=== PATIENT | male | born 1980 | race Caucasian/White ===

== ENCOUNTER → 2016-12-13 | Outpatient (CLI) | payer BC ==
--- NOTE | 2016-12-13 14:21 | REP ---
Clinical: Trauma. Technique: AP and lateral views of the right tibia / fibula. Findings: Anterior view demonstrates a 3 mm cortical defect along the anterior mid tibia which may reflect small fracture and should be correlated with mechanism of injury and point of maximal tenderness. Impression: Small likely traumatic cortical defect along the mid anterior tibia. Signed by Delmar Cartagena MD 12/13/2016 02:12 P
== END ==
LOC: M ADAMS 13:46
PROVIDERS: ATTEND Physician Assistant Medical
DX: R52 Pain, unspecified (principal)

== ENCOUNTER 2017-07-27 10:10 | Day surgery (SDC) | payer OTHER, BC ==
[~2017-07-27] VITALS: Ht 185.4 cm; Wt 112.9 kg
[~2017-07-27 10:10] MED LIST: FLUO20CA8 PO; VITA2000 PO
[2017-07-27] MEDS: NS 1,000 ML IV ONE (10:15)
[2017-07-27] MEDS ORDERED: PROPOFOL 200 MG/20 ML VIAL As Ordered ONE (10:31)
[2017-07-27] MEDS ORDERED: LIDOCAINE 2% INJ 100 MG/5 ML SDV (FOR ANES.) As Ordered ONE (10:31)
[2017-07-27] MEDS ORDERED: fentaNYL 100 MCG/2 ML INJECTION (J3010) As Ordered ONE (11:18)
--- NOTE | 2017-07-27 11:35 | ROOR ---
Patient Name: Ciro Alvarez Procedure Date: 07/27/2017 11:14 AM Date of : 1980 Age: 37 Room: [facility] Gender: Male Note Status: Finalized Procedure: Upper GI endoscopy + Small bowel bx. Indications: Diarrhea, Endoscopy to assess diarrhea in patient suspected of having celiac disease Providers: Alberto Lock MD Referring MD: Charlie Alford Requesting Provider: Medicines: Monitored Anesthesia Care Complications: No immediate complications. Procedure: Pre-Anesthesia Assessment: - The heart rate, respiratory rate, oxygen saturations, blood pressure, adequacy of pulmonary ventilation, and response to care were monitored throughout the procedure. The Endoscope was introduced through the mouth, and advanced to the second part of duodenum. The upper GI endoscopy was accomplished without difficulty. The patient tolerated the procedure well. Findings: The Z-line was irregular and was found 40 cm from the incisors. Multiple biopsies were obtained with cold forceps for evaluation to rule out Srinivasan's Esophagus randomly at the gastroesophageal junction. Non-severe esophagitis with no bleeding was found 40 cm from the incisors. A medium-sized hiatal hernia was present. No other significant abnormalities were identified in a careful examination of the stomach. The exam of the duodenum was otherwise normal. Biopsies for histology were taken with a cold forceps in the first portion of the duodenum for evaluation of celiac disease. The exam was otherwise without abnormality. Impression: - Z-line irregular, 40 cm from the incisors. - Non-severe reflux esophagitis. Rule out Srinivasan's esophagus. - Medium-sized hiatal hernia. - The examination was otherwise normal. - Multiple biopsies were obtained at the gastroesophageal junction. - Biopsies were taken with a cold forceps for evaluation of celiac disease. - The examination was otherwise normal. Recommendation: - Patient has a contact number available for emergencies. The signs and symptoms of potential delayed complications were discussed with the patient. Return to normal activities tomorrow. Written discharge instructions were provided to the patient. - High fiber diet. - Discharge patient to home. - Follow an antireflux regimen. - Use Prilosec (omeprazole) 40 mg PO daily. - Await pathology results. - Telephone GI clinic for pathology results in 1 week. - Check Portal Online for Path Results.([email or web address]) - Repeat upper endoscopy for surveillance based on pathology results. - The findings and recommendations were discussed with the patient's family. Alberto Lock MD Alberto Lock MD 07/27/2017 11:35:19 AM This report has been signed electronically. Number of Addenda: 0 Note Initiated On: 07/27/2017 11:14 AM Estimated Blood Loss: Estimated blood loss: none.
--- NOTE | 2017-07-27 11:57 | ROOR ---
Patient Name: Ciro Alvarez Procedure Date: 07/27/2017 11:15 AM Date of : 1980 Age: 37 Room: [facility] Gender: Male Note Status: Finalized Procedure: Total Colonoscopy to Cecum + ileoscopy + Bx Indications: Clinically significant diarrhea of unexplained origin Providers: Alberto Lock MD Referring MD: Charlie Alford Requesting Provider: Medicines: Monitored Anesthesia Care Complications: No immediate complications. Procedure: Pre-Anesthesia Assessment: - The heart rate, respiratory rate, oxygen saturations, blood pressure, adequacy of pulmonary ventilation, and response to care were monitored throughout the procedure. The Colonoscope was introduced through the anus and advanced to the cecum, identified by appendiceal orifice and ileocecal valve. The colonoscopy was performed without difficulty. The patient tolerated the procedure well. The quality of the bowel preparation was good. Findings: The perianal and digital rectal examinations were normal. Non-bleeding internal hemorrhoids were found during retroflexion. The hemorrhoids were small and Grade I (internal hemorrhoids that do not prolapse). No other significant abnormalities were identified in a careful examination of the remainder of the colon. The exam was otherwise without abnormality on direct and retroflexion views. The terminal ileum appeared normal. Impression: - Non-bleeding internal hemorrhoids. - The examination was otherwise normal on direct and retroflexion views. - The examined portion of the ileum was normal. - No specimens collected. - The exam was otherwise normal to the cecum. Recommendation: - Patient has a contact number available for emergencies. The signs and symptoms of potential delayed complications were discussed with the patient. Return to normal activities tomorrow. Written discharge instructions were provided to the patient. - High fiber diet. - Discharge patient to home. - Continue present medications. - Await pathology results. - Telephone GI clinic for pathology results in 1 week. - Check Portal Online for Path Results.([email or web address]) - The findings and recommendations were discussed with the patient's family. Alberto Lock MD Alberto Lock MD 07/27/2017 11:57:01 AM This report has been signed electronically. Number of Addenda: 0 Note Initiated On: 07/27/2017 11:15 AM Estimated Blood Loss: Estimated blood loss: none.
[2017-07-27 12:15] VITALS: BP 148/85
== END 2017-07-27 12:21 | disposition home or self-care (01) ==
LOC: M OPP 10:10
PROVIDERS: ATTEND Internal Medicine Gastroenterology
DX: R19.7 Diarrhea, unspecified (principal); K64.0 First degree hemorrhoids; K22.8 Other specified diseases of esophagus; K21.0 Gastro-esophageal reflux disease with esophagitis; K44.9 Diaphragmatic hernia without obstruction or gangrene; K58.9 Irritable bowel syndrome, unspecified; F43.10 Post-traumatic stress disorder, unspecified; Z87.820 Personal history of traumatic brain injury; R06.83 Snoring; Z87.891 Personal history of nicotine dependence; Z79.899 Other long term (current) drug therapy
CPT/HCPCS: 43239; 45380; 88305; J3010

== ENCOUNTER → 2018-11-24 | Outpatient (REF) | payer BC ==
[2018-11-24 12:42] LABS: MEAN CORPUSCULAR HEMOGLOBIN 29.5 pg (27.0-33.0); MEAN CORPUSCULAR VOLUME 86.7 fl (80.0-96.0); PLATELET COUNT, AUTOMATED 281 10^3/uL (150-450); RED BLOOD COUNT 5.42 10^6/uL (4.30-6.10); WHITE BLOOD COUNT 5.2 10^3/uL (4.0-10.0)
[2018-11-24 13:49] LABS: ALBUMIN 4.2 GM/DL (3.2-5.2); ALT/SGPT 89 U/L (12-78); BILIRUBIN,TOTAL 0.7 MG/DL (0.2-1.0); BLOOD UREA NITROGEN 14 MG/DL (7-18); CALCIUM LEVEL 8.5 MG/DL (8.5-10.1); CARBON DIOXIDE LEVEL 27 MEQ/L (21-32); CHLORIDE LEVEL 104 MEQ/L (98-107); CHOLESTEROL LEVEL 246 MG/DL (<200); CHOLESTEROL RISK RATIO 7.687 (<5); CREATININE FOR GFR 1.06 MG/DL (0.70-1.30); GLOMERULAR FILTRATION RATE > 60.0 (>60); GLUCOSE, FASTING 99 MG/DL (70-100); HDL CHOLESTEROL 32 MG/DL (>40); LDL CHOLESTEROL 175 MG/DL (<100); NON-HDL-C 214 MG/DL; POTASSIUM SERUM 4.8 MEQ/L (3.5-5.1); SODIUM LEVEL 138 MEQ/L (136-145); TOTAL 25(OH) VITAMIN D 14.4 NG/ML (30.0-100.0); TOTAL PROTEIN 7.9 GM/DL (6.4-8.2); TRIGLYCERIDES LEVEL 197 MG/DL (<150)
== END ==
LOC: M SFHCADAM 08:50
PROVIDERS: ATTEND Physician Assistant
DX: R09.81 Nasal congestion (principal); R42 Dizziness and giddiness; K58.0 Irritable bowel syndrome with diarrhea; G43.109 Migraine with aura, not intractable, without status migrainosus

== ENCOUNTER 2019-09-12 09:34 | Emergency (ER) | payer BC ==
[~2019-09-12] VITALS: Ht 185.4 cm; Wt 117.8 kg
[2019-09-12 09:34] VITALS: BP 119/83
[~2019-09-12 09:34] MED LIST changes: +FLUO20CA20 PO; -FLUO20CA8 PO
[2019-09-12] MEDS ORDERED: ATOR1TAB19 (09:40)
[2019-09-12] MEDS ORDERED: TOPI25TA10 (09:40)
[2019-09-12] MEDS ORDERED: SERT-141 PO (09:40)
[2019-09-12] MEDS ORDERED: VALA1TAB64 PO (10:07)
[2019-09-12] MEDS ORDERED: NEUR300C PO (10:07)
[2019-09-12] MEDS ORDERED: GABAPENTIN 300 MG CAP PO ONE (10:15)
[2019-09-12] MEDS ORDERED: valACYclovir HCL 500 MG TAB PO ONE (10:15)
== END 2019-09-12 10:21 | disposition home or self-care (01) ==
LOC: M ED 09:34
DX: R21 Rash and other nonspecific skin eruption (principal); B02.9 Zoster without complications; K58.9 Irritable bowel syndrome, unspecified; Z79.899 Other long term (current) drug therapy

== ENCOUNTER → 2019-09-17 | Outpatient (REF) | payer BC ==
[~2019-09-17] MED LIST changes: +ATOR1TAB19; +NEUR300C PO; +SERT-141 PO; +TOPI25TA10; +VALA1TAB64 PO
[2019-09-17 13:22] LABS: ALBUMIN 3.9 GM/DL (3.2-5.2); ALT/SGPT 93 U/L (12-78); BILIRUBIN,TOTAL 0.5 MG/DL (0.2-1.0); BLOOD UREA NITROGEN 16 MG/DL (7-18); CALCIUM LEVEL 8.6 MG/DL (8.5-10.1); CARBON DIOXIDE LEVEL 24 MEQ/L (21-32); CHLORIDE LEVEL 108 MEQ/L (98-107); CHOLESTEROL LEVEL 202 MG/DL (<200); CHOLESTEROL RISK RATIO 4.697 (<5); CREATININE FOR GFR 1.09 MG/DL (0.70-1.30); GLOMERULAR FILTRATION RATE > 60.0 (>60); GLUCOSE, FASTING 116 MG/DL (70-100); HDL CHOLESTEROL 43 MG/DL (>40); LDL CHOLESTEROL 102 MG/DL (<100); NON-HDL-C 159 MG/DL; POTASSIUM SERUM 4.5 MEQ/L (3.5-5.1); SODIUM LEVEL 140 MEQ/L (136-145); TOTAL PROTEIN 7.8 GM/DL (6.4-8.2); TRIGLYCERIDES LEVEL 284 MG/DL (<150)
== END ==
LOC: M SFHCADAM 11:01
PROVIDERS: ATTEND Physician Assistant
DX: E78.2 Mixed hyperlipidemia (principal); K58.0 Irritable bowel syndrome with diarrhea

== ENCOUNTER 2023-02-13 00:16 | Emergency (ER) | payer BC ==
[~2023-02-13 00:16] MED LIST changes: +FLUO-96 PO; -FLUO20CA20 PO; +VALA1TAB5 PO; -VALA1TAB64 PO
[2023-02-13] MEDS ORDERED: ONDANSETRON 4MG 2ML VIAL IV ONE (00:45)
[2023-02-13] MEDS: MORPHINE 4 MG/ML 1ML VIAL IV PRN ×2 (00:47→02:18)
[2023-02-13] MEDS ORDERED: KETOROLAC 30 MG/ML 1ML VIAL IV ONE ×2 (01:40→06:45)
[2023-02-13 03:50] LABS: GC DNA AMPLIFICATION NEGATIVE (NEGATIVE)
[2023-02-13 04:48] LABS: BASO # 0.1 10^3/uL (0.0-0.2); BASO % 0.6 % (0.0-1.0); EOS # 0.3 10^3/uL (0.0-0.5); EOS % 3.3 % (0.0-3.0); HEMATOCRIT 45.6 % (42.0-52.0); HEMOGLOBIN 15.9 g/dl (13.5-17.5); LYMPH # 2.1 10^3/uL (1.5-5.0); LYMPH % 27.3 % (24.0-44.0); MEAN CORPUSCULAR HEMOGLOBIN 30.5 pg (27.0-33.0); MEAN CORPUSCULAR HGB CONC 34.9 g/dl (32.0-36.5); MEAN CORPUSCULAR VOLUME 87.4 fl (80.0-96.0); MONO # 0.6 10^3/uL (0.0-0.8); MONO % 7.2 % (2.0-8.0); NEUTROPHILS # 4.8 10^3/uL (1.5-8.5); NEUTROPHILS % 60.8 % (36.0-66.0); PLATELET COUNT, AUTOMATED 209 10^3/uL (150-450); RED BLOOD COUNT 5.22 10^6/uL (4.30-6.10); WHITE BLOOD COUNT 7.8 10^3/uL (4.0-10.0)
[2023-02-13 05:13] LABS: BLOOD UREA NITROGEN 22 MG/DL (9-23); CALCIUM LEVEL 8.5 MG/DL (8.5-10.1); CARBON DIOXIDE LEVEL 23 MMOL/L (20-31); CHLORIDE LEVEL 107 MMOL/L (98-107); CREATININE FOR GFR 1.09 MG/DL (0.70-1.30); GLOMERULAR FILTRATION RATE > 60.0 (>60); GLUCOSE, FASTING 139 MG/DL (60-100); POTASSIUM SERUM 4.3 MMOL/L (3.5-5.1); SODIUM LEVEL 138 MMOL/L (136-145)
[2023-02-13] MEDS ORDERED: FLOM0.4C39 PO (06:14)
[2023-02-13] MEDS ORDERED: KETO10TAB PO (06:14)
[2023-02-13] MEDS ORDERED: TAMSULOSIN 0.4 MG CAP PO ONE (06:15)
[2023-02-13 06:42] VITALS: BP 134/96
== END 2023-02-13 07:01 | disposition home or self-care (01) ==
LOC: M ED 00:16
DX: N13.2 Hydronephrosis with renal and ureteral calculous obstruction (principal); K76.0 Fatty (change of) liver, not elsewhere classified; Z79.899 Other long term (current) drug therapy
CPT/HCPCS: 74176; 76870; 80048; 81001; 85025; 87661; 87810; 87850; 93976; 96374; 96375; 96376; 99284; J1885; J2405